=== PATIENT | female | born 1970 | race Caucasian/White ===

== ENCOUNTER → 2016-08-30 | Outpatient (CLI) | payer OTHER ==
--- NOTE | ~2016-08-30 | MY11 ---
[facility] A Service of [facility] / [facility] RADIOLOGY TEXT RESULTS PATIENT: ALEXEI HOUGH LOCATION: [facility] : 66 UNIT #: [id number] AGE: [address]: Anoop Dent MD SEX: F ORDER DR: [id number] [facility] [address] [place], [place] [address] [id number] O MR#: [id number] #: [id number] NAME: ALEXEI HOUGH : 1970 SEX: F STUDY DATE/TIME: 08/30/2016 9:50 UNIT: [facility] ROOM: STUDY DESCRIPTION: MY Mammogram Screening Dig Ajay Attending Physician: Anoop Dent M.D. Referring Physician: Anoop Dent M.D. Ordering Physician: Anoop Dent M.D. Primary Care Physician: Anoop Dent M.D. MEDICAL IMAGING REPORT This report is preliminary unless electronic signature is present EXAM Digital screening mammogram, 08/30/2016. HISTORY A 46-year-old woman for baseline mammogram. No risk elevation. COMPARISON STUDIES None. FINDINGS Digital imaging of each breast was completed utilizing screening protocol. Review includes FDA-approved CAD device. Breast parenchyma is heterogeneously dense with subareolar duct prominence bilaterally. Moderate parenchymal density projects inner hemispheres of each breast slightly dominant on the right. I see no dominant mass. There are no suspicious microcalcifications and no architectural distortion. IMPRESSION Benign mammogram. Annual screening recommended. BIRADS 2 BIRADS: 2 Benign Finding Dictated by... Jude Manzano M.D. THIS IS AN ELECTRONICALLY VERIFIED REPORT Jude Manzano M.D. at 08/30/2016 1:35 PM VIKAS/abigail TD: 08/30/2016 12:37 JOB #: [id number] [facility] A Service of [facility] / [facility] RADIOLOGY TEXT RESULTS PATIENT: [facility]LEX[facility] HOUGH [id number] : [birth year] UNIT #: [id number] AGE: [address]: Anoop Dent MD SEX: F ORDER DR: MEDICAL IMAGING REPORT Page 1 of 1 COPY
== END | disposition home or self-care (01) ==
LOC: CWCC 09:29
DX: Z12.31 Encounter for screening mammogram for malignant neoplasm of breast (principal)
CPT/HCPCS: G0202